=== PATIENT | male | born 1930 | race Caucasian/White ===

== ENCOUNTER → 2016-06-17 | Outpatient (CLI) | payer MEDICARE ==
[~2016-06-17] MED LIST: ACETAMINOPHEN PO; ASPIRIN81 M2 PO; BAYER ASPIRIN325 M1 PO; EYE VITAMIN-MI1 EACH; LASIX PO; LORTAB 7.5-5001 TAB PO; METOPROLOL SUCC25 MG PO; MULTI VITAMIN1 EACH PO; PERCOCET 5-3251 TAB PO; RAMIPRIL10 MG PO
--- NOTE | ~2016-06-17 | CT4 ---
[facility] A Service of [facility] RADIOLOGY TEXT RESULTS PATIENT: NEHEMIAS YOUNG LOCATION: [facility] : 32 UNIT #: [id number] AGE: [address]: Mahendra Nunez MD SEX: M ORDER DR: [id number] [facility] [address] [place], [place] [address] [id number] O MR#: [id number] Acc #: [id number] NAME: NEHEMIAS YOUNG : 1930 SEX: M STUDY DATE/TIME: 06/17/2016 14:58 UNIT: [facility] ROOM: STUDY DESCRIPTION: CT Abd and Pelv Wo Cont Attending Physician: Mahendra Nunez M.D. Referring Physician: Mahendra Nunez M.D. Ordering Physician: Mahendra Nunez M.D. Primary Care Physician: Tyler Almodovar M.D. MEDICAL IMAGING REPORT This report is preliminary unless electronic signature is present EXAM CT abdomen and pelvis without contrast INDICATIONS Restaging renal cell carcinoma. Observation for metastatic disease. PROCEDURE Unenhanced CT of the abdomen and pelvis. This CT exam was performed with one or more of the following radiation dose reduction techniques: automatic exposure control, adjustment of mA and/or kV according to patient size, and iterative reconstruction. COMPARISON 06/26/2015 FINDINGS Abdomen without contrast: Included lung bases predominately clear. There is a small cyst in the left hepatic lobe. Otherwise liver, spleen, adrenal glands, pancreas, gallbladder unremarkable. Previous right nephrectomy. No abnormal soft tissue in the nephrectomy bed. No pathologically enlarged retroperitoneal adenopathy. Uncomplicated sigmoid diverticula. Pelvis without contrast: Mild prostatomegaly. No pelvic mass or fluid. No aggressive appearing bone lesion. IMPRESSION 1. Prior right nephrectomy. No evidence for metastatic disease in the abdomen or pelvis. 2. Mild prostatomegaly. [facility] A Service [facility] RADIOLOGY TEXT RESULTS PATIENT: NEHEMIAS YOUNG LOCATION: [facility] : 32 UNIT #: [id number] AGE: [address]: Mahendra Nunez MD SEX: M ORDER DR: Dictated by... Alan Salazar M.D. THIS IS AN ELECTRONICALLY VERIFIED REPORT Alan Salazar M.D. at 06/19/2016 7:19 AM Carl TD: 06/18/2016 08:03 JOB #: [id number] MEDICAL IMAGING REPORT Page 1 of 1 COPY
--- NOTE | ~2016-06-17 | CR63 ---
[facility] A Service of [facility] RADIOLOGY TEXT RESULTS PATIENT: NEHEMIAS YOUNG LOCATION: [facility] EDT : 32 UNIT #: [id number] AGE: [address]: Mahendra Nunez MD SEX: M ORDER DR: [id number] [facility] [address] [place], [place] [address] [id number] O MR#: [id number] Acc #: [id number] NAME: NEHEMIAS YOUNG : 1930 SEX: M STUDY DATE/TIME: 06/17/2016 14:31 UNIT: [facility] ROOM: STUDY DESCRIPTION: CR Chest 2 View Attending Physician: Mahendra Nunez M.D. Referring Physician: Mahendra Nunez M.D. Ordering Physician: Mahendra Nunez M.D. Primary Care Physician: Tyler Almodovar M.D. MEDICAL IMAGING REPORT This report is preliminary unless electronic signature is present EXAM PA and lateral chest radiograph 06/17/2016 COMPARISON 11/27/2015 HISTORY Renal cell carcinoma, 1 year followup of a malignant process. FINDINGS PA and lateral views are obtained. The heart size is normal. Vascular pattern is normal. Lungs are hyperinflated but clear. Transvenous pacemaker is in good position with leads in the right into the atrium and ventricle. CONCLUSION Stable chest. No active disease. Dictated by... Ronaldo Reynolds M.D. THIS IS AN ELECTRONICALLY VERIFIED REPORT Ronaldo Reynolds M.D. at 06/20/2016 2:20 PM SVEN/elizabet TD: 06/17/2016 19:25 JOB #: [id number] MEDICAL IMAGING REPORT Page 1 of 1 COPY
[2016-06-17 14:42] LABS: ALBUMIN SERUM 3.9 g/dL (3.5-5.0); BILIRUBIN,TOTAL 0.4 mg/dL (0.2-2.0); CREATININE SERUM 1.8 mg/dL (0.6-1.4); POTASSIUM 4.5 mmol/L (3.5-5.1)
== END | disposition home or self-care (01) ==
LOC: CCAT 13:52
PROVIDERS: Urology
DX: Z08 Encounter for follow-up examination after completed treatment for malignant neoplasm (principal); N40.0 Benign prostatic hyperplasia without lower urinary tract symptoms; Z90.5 Acquired absence of kidney; Z85.528 Personal history of other malignant neoplasm of kidney
CPT/HCPCS: 36415; 71020; 74176; 80053